=== PATIENT | female | born 1970 | race Caucasian/White ===

== ENCOUNTER 2018-11-21 20:06 | Emergency (ER) | payer OTHER ==
[2018-11-21 20:23] VITALS: BP 133/78; PULSE 90; RESP 18; TEMP 97.8
[2018-11-21] MEDS ORDERED: SULFAMETH-TMP DS STARTER PACK 2 TAB BTL PO STA (20:50)
[2018-11-21] MEDS ORDERED: DIPH,PERTUS(ACELL)TETVAC-LF 0.5 ML VIAL IM ONE (20:50)
--- NOTE | 2018-11-21 20:57 | ED ---
Upper Extremity HPI - General Chief Complaint: Extremity Injury, Upper Stated Complaint: Infection on wrist Time Seen by Provider: 11/21/18 20:24 Source: patient, RN notes reviewed, old records reviewed Mode of arrival: ambulatory Limitations: no limitations - History of Present Illness Initial Comments: Patient is a 40-year-old female presents emergency Department with complaints of wrist pain. Patient reports that she was helping her change the oil in his truck yesterday. She reports that she scratched the back of her hand on a conservative the car. Patient reports that her tetanus shot is not up-to-date. She complains of some surrounding erythema but wrist. She denies any significant pain with range of motion. She reports that has been swollen. She denies fevers. She reports normal sensation distally. - Related Data Previous Rx's Medication Instructions Recorded Sulfamethox-Tmp 800-160Mg [Bactrim 2 tab PO Q12HR #40 tab 11/21/18 DS 800-160 mg] Allergies Allergy/AdvReac Type Severity Reaction Status Date / Time clindamycin Allergy Swelling Verified 11/21/18 20:23 Tetracyclines Allergy Rash/Hives Verified 11/21/18 20:23 Review of Systems ROS Statement: Those systems with pertinent positive or pertinent negative responses have been documented in the HPI. ROS Other: All systems not noted in ROS Statement are negative. Past Medical History Past Medical History: Asthma, COPD, Thyroid Disorder Additional Past Medical History / Comment(s): IBS, History of Any Multi-Drug Resistant Organisms: None Reported Past Surgical History: Hysterectomy, Orthopedic Surgery Additional Past Surgical History / Comment(s): left ankle, bilateral knee, thyroidectomy Past Psychological History: PTSD Smoking Status: Current every day smoker Past Alcohol Use History: None Reported Past Drug Use History: None Reported General Exam - General Exam Comments Initial Comments: This is a 48-year-old female. Alert and oriented. No significant distress. Limitations: no limitations General appearance: alert, in no apparent distress Head exam: Present: atraumatic, normocephalic, normal inspection Eye exam: Present: normal appearance, PERRL, EOMI. Absent: scleral icterus, conjunctival injection, periorbital swelling ENT exam: Present: normal exam, mucous membranes moist Neck exam: Present: normal inspection. Absent: tenderness, meningismus, lymphadenopathy Respiratory exam: Present: normal lung sounds bilaterally. Absent: respiratory distress, wheezes, rales, rhonchi, stridor Cardiovascular Exam: Present: regular rate, normal rhythm, normal heart sounds. Absent: systolic murmur, diastolic murmur, rubs, gallop, clicks GI/Abdominal exam: Present: soft, normal bowel sounds. Absent: distended, tenderness, guarding, rebound, rigid Left Forearm Wrist exam: Present: full ROM. Absent: normal inspection ( has a 3 cm abrasion over the distal wrist with surrounding erythema measuring 6 cm x 5 cm.) Hand Wrist exam: Present: normal inspection, full ROM Course Vital Signs 11/21/18 20:16 Temperature 97.8 F Pulse Rate 90 Respiratory 18 Rate Blood Pressure 133/78 O2 Sat by Pulse 100 Oximetry Medical Decision Making - Medical Decision Making 48-year-old female presents emergency department today with left wrist abrasion that happened 2 days ago and surrounding cellulitis. Patient was given updated T At this time. She did cut her arm on a vehicle 2 days ago while changing oil. Patient will be started on Bactrim at this time. Discussed the importance of monitoring the area of redness if the redness continues to spread and streaking at the time I discussed the Patient she may need to return for IV antibiotics. Patient agrees to treatment plan will comply. Return parameters were discussed. Disposition Clinical Impression: Cellulitis of wrist Disposition: HOME SELF-CARE Condition: Good Instructions (If sedation given, give patient instructions): Cellulitis (ED) Additional Instructions: Patient advised to keep area clean and dry. Patient should take antibiotic as prescribed. If the area of redness spreads and worsens within the next 48 hours. Patient should return for reevaluation. Prescriptions: Sulfamethox-Tmp 800-160Mg [Bactrim DS 800-160 mg] 2 tab PO Q12HR #40 tab Is patient prescribed a controlled substance at d/c from ED?: No Referrals: Nonstaff,Physician [Primary Care Provider] - 1-2 days Lena Mensah MD [STAFF PHYSICIAN] - 1-2 days Time of Disposition: 20:55
== END 2018-11-21 21:25 | disposition home or self-care (01) ==
LOC: EC 20:06
DX: S60.812A Abrasion of left wrist, initial encounter (principal); L03.114 Cellulitis of left upper limb; F17.200 Nicotine dependence, unspecified, uncomplicated; Z88.1 Allergy status to other antibiotic agents; X58.XXXA Exposure to other specified factors, initial encounter; Z23 Encounter for immunization
CPT/HCPCS: 90471; 90715; 99283

== ENCOUNTER 2018-11-30 08:41 | Emergency (ER) | payer OTHER ==
[2018-11-30 08:45] VITALS: BP 124/79; PULSE 88; RESP 18; TEMP 98.6
[2018-11-30] MEDS ORDERED: methylPREDNISolone SOD SUCCI 125 MG/2 ML VIAL IM ONE (09:05)
[2018-11-30] MEDS ORDERED: diphenhydrAMINE 50 MG CAP PO STA (09:06)
[2018-11-30] MEDS ORDERED: FAMOTIDINE 20 MG TAB PO STA (09:06)
--- NOTE | 2018-11-30 09:12 | ED ---
Skin/Abscess/FB HPI - General Chief complaint: Skin/Abscess/Foreign Body Stated complaint: Allergic Reaction Time Seen by Provider: 11/30/18 08:48 Source: patient, RN notes reviewed, old records reviewed Mode of arrival: ambulatory Limitations: no limitations - History of Present Illness Initial comments: Patient is 48-year-old female who presents emergency department today with 1 day of diffuse rash over her body. She reports it seemed to start on her groin and legs. Patient states that she was seen and treated for left forearm cellulitis. She is placed on Bactrim approximately 8 days ago. Patient states that the cellulitis has improved on her forearm. Patient reports that the rash is somewhat pruritic. She denies any chills. Vital signs are stable. She states she's just been generally fatigued over the past day. Patient denies any other symptoms. - Related Data Previous Rx's Medication Instructions Recorded Sulfamethox-Tmp 800-160Mg [Bactrim 2 tab PO Q12HR #40 tab 11/21/18 DS 800-160 mg] Famotidine [Pepcid] 40 mg PO DAILY #20 tab 11/30/18 diphenhydrAMINE [Benadryl] 25 mg PO QID PRN #20 capsule 11/30/18 predniSONE 10 mg PO DAILY #15 tab 11/30/18 Allergies Allergy/AdvReac Type Severity Reaction Status Date / Time clindamycin Allergy Swelling Verified 11/21/18 20:23 Tetracyclines Allergy Rash/Hives Verified 11/21/18 20:23 Review of Systems ROS Statement: Those systems with pertinent positive or pertinent negative responses have been documented in the HPI. ROS Other: All systems not noted in ROS Statement are negative. Past Medical History Past Medical History: Asthma, COPD, Thyroid Disorder Additional Past Medical History / Comment(s): IBS, History of Any Multi-Drug Resistant Organisms: None Reported Past Surgical History: Hysterectomy, Orthopedic Surgery Additional Past Surgical History / Comment(s): left ankle, bilateral knee, thyroidectomy Past Psychological History: PTSD Smoking Status: Current every day smoker Past Alcohol Use History: None Reported Past Drug Use History: None Reported General Exam - General Exam Comments Initial Comments: This is a 40-year-old female. Alert and oriented 3. Patient appears in no acute distress. Limitations: no limitations General appearance: alert, in no apparent distress Head exam: Present: atraumatic, normocephalic, normal inspection Eye exam: Present: normal appearance, PERRL, EOMI. Absent: scleral icterus, conjunctival injection, periorbital swelling ENT exam: Present: normal exam, mucous membranes moist Neck exam: Present: normal inspection. Absent: tenderness, meningismus, lymphadenopathy Respiratory exam: Present: normal lung sounds bilaterally. Absent: respiratory distress, wheezes, rales, rhonchi, stridor Cardiovascular Exam: Present: regular rate, normal rhythm, normal heart sounds. Absent: systolic murmur, diastolic murmur, rubs, gallop, clicks GI/Abdominal exam: Present: soft, normal bowel sounds. Absent: distended, tenderness, guarding, rebound, rigid Extremities exam: Present: normal inspection, full ROM, normal capillary refill. Absent: tenderness, pedal edema, joint swelling, calf tenderness Back exam: Present: normal inspection Neurological exam: Present: alert, oriented X3, CN II-XII intact Psychiatric exam: Present: normal affect, normal mood Skin exam: Present: warm, dry, intact, normal color, rash (Mobility form erythematous rash over face trunk chest and legs. No blisters. Negative Nikolsky sign.) Course Vital Signs 11/30/18 08:43 Temperature 98.6 F Pulse Rate 88 Respiratory 18 Rate Blood Pressure 124/79 O2 Sat by Pulse 100 Oximetry Medical Decision Making - Medical Decision Making Patient is a 40-year-old female presents emergency department today, 9 days after being treated for left forearm cellulitis with Bactrim. Patient states the cellulitis has improved. Today she presents with a morbilliform rash. Rashes consistent with drug eruption. Vital signs are stable. Rash is no blistering, negative Nikolsky sign. Oropharynx appears normal. Patient was given IM Solu-Medrol and Pepcid and Benadryl. Patient be treated for acute ALLERGIC reaction. Discussed discontinuing the drug. Discussed strict return parameters. Patient agrees to treatment plan will comply. Disposition Clinical Impression: Drug eruption Disposition: HOME SELF-CARE Condition: Good Additional Instructions: Patient advised to follow-up with your primary care physician. Take the steroids Benadryl Pepcid as prescribed. Patient is to do cool showers. Patient needs to rest, remain hydrated. If there is any areas of blistering on the skin please return for reevaluation. Patient could have a rash her few days. Discontinue the antibiotic. Prescriptions: diphenhydrAMINE [Benadryl] 25 mg PO QID PRN #20 capsule PRN Reason: Itching Famotidine [Pepcid] 40 mg PO DAILY #20 tab predniSONE 10 mg PO DAILY #15 tab Is patient prescribed a controlled substance at d/c from ED?: No Referrals: Nonstaff,Physician [Primary Care Provider] - 1-2 days Lena Mensah MD [STAFF PHYSICIAN] - 1-2 days Time of Disposition: 09:09
== END 2018-11-30 09:27 | disposition home or self-care (01) ==
LOC: EC 08:41
DX: L27.0 Generalized skin eruption due to drugs and medicaments taken internally (principal); T37.0X5A Adverse effect of sulfonamides, initial encounter; F17.200 Nicotine dependence, unspecified, uncomplicated; Z88.1 Allergy status to other antibiotic agents
CPT/HCPCS: 96372; 99283

== ENCOUNTER → 2022-01-03 | Outpatient (CLI) | payer BC ==
--- NOTE | 2022-01-03 13:38 | US ---
EXAMINATION TYPE: US pelvic complete DATE OF EXAM: 01/03/2022 COMPARISON: NONE CLINICAL HISTORY: N83.0 OVARIAN CYST. Partial hysterectomy hx of cysts. Patient didn't want transvag inal exam. TECHNIQUE: Transabdominal (TA EXAM MEASUREMENTS: Uterus: Surgically absent Endometrial Stripe: Surgically absent Right Ovary: Obscured by bowel gas. Left Ovary: Obscured by bowel gas. 5. Bilateral Adnexa: wnl 6. Posterior cul-de-sac: wnl IMPRESSION: Postoperative changes as discussed with exam limitations as noted.
== END | disposition home or self-care (01) ==
LOC: RADUSWWP 11-26 10:53
PROVIDERS: ATTEND Internal Medicine
DX: N83.209 Unspecified ovarian cyst, unspecified side (principal); Z90.711 Acquired absence of uterus with remaining cervical stump
CPT/HCPCS: 76856

== ENCOUNTER → 2022-01-14 | Outpatient (CLI) | payer BC ==
--- NOTE | 2022-01-14 14:15 | US ---
EXAMINATION TYPE: US venous doppler duplex LE LT DATE OF EXAM: 01/14/2022 2:04 PM COMPARISON: NONE CLINICAL HISTORY: R22.42 LOCALIZED SWELLING, MASS AND LUMP, LEFT LOW. No hx of DVT. Patient does not take blood thinners. Pain and swelling x 1 month. SIDE PERFORMED: Left TECHNIQUE: The lower extremity deep venous system is examined utilizing real time linear array sonog josiane with graded compression, doppler sonography and color-flow sonography. VESSELS IMAGED: Common Femoral Vein Deep Femoral Vein Greater Saphenous Vein * Femoral Vein Popliteal Vein Small Saphenous Vein * Proximal Calf Veins (* superficial vessels) Left Leg: No evidence of DVT in veins imaged at this time. IMPRESSION: No evidence of DVT at this time.
== END | disposition home or self-care (01) ==
LOC: RADUSWWP 13:45
PROVIDERS: ATTEND Internal Medicine
DX: R22.42 Localized swelling, mass and lump, left lower limb (principal); M79.662 Pain in left lower leg

== ENCOUNTER → 2024-02-23 | Outpatient (CLI) | payer BC ==
--- NOTE | 2024-02-23 11:06 | CTL ---
EXAMINATION TYPE: CT Low Dose Lung DATE OF EXAM ORDERED: 02/23/2024 History: Lung cancer screening CT DLP: 88.[address] CTDI: 2.2 mGy Automated exposure control for dose reduction was used. Comparison: None TECHNIQUE: Low dose computed tomography scan was performed through the chest at 1 mm thick sections a nd reconstructed images in multiple planes at 1 mm and [address] DIAGNOSTIC QUALITY: Satisfactory Findings: There are moderate emphysematous changes. There is mild pleural-parenchymal scarring and bronchiectasis in the right middle lobe. There is 11.3 mm somewhat ill-defined nodule in the right middle lobe. There is a sub-5 mm nodule in the right upper lobe laterally. There is a sub-5 mm nodule in the left lower lobe. The great vessels chest are normal and is no mediastinal, hilar or axillary adenopathy. There are anjelica cified right hilar lymph nodes. There is no pleural effusion or pneumothorax. Limited scanning through the upper abdomen reveals a well-circumscribed 2.5 cm hypodense nodule in th e left adrenal gland most likely an adrenal adenoma. No focal osseous lesions are seen. IMPRESSION: 1. Lung RADS category 4A for the 11.3 mm nodule in the right upper lobe. PET scan is recommended for further evaluation. 2. Moderate emphysematous changes. 3. Left adrenal mass as described above, most likely an adenoma. 4. No acute cardiopulmonary disease.
== END | disposition home or self-care (01) ==
LOC: RADCTMAIN 09:19
PROVIDERS: ATTEND Internal Medicine Critical Care Medicine
DX: Z12.2 Encounter for screening for malignant neoplasm of respiratory organs (principal); R91.1 Solitary pulmonary nodule; E27.9 Disorder of adrenal gland, unspecified; F17.210 Nicotine dependence, cigarettes, uncomplicated
CPT/HCPCS: 71271

== ENCOUNTER → 2024-03-14 | Outpatient (CLI) | payer BC ==
--- NOTE | 2024-03-15 14:08 | PE ---
EXAMINATION TYPE: PET CT fusion skull to thigh DATE OF EXAM: 03/14/2024 CLINICAL INDICATION:Female, 53 years old with history of R91.8 lung nodule; TECHNIQUE: Following the intravenous administration of 8.09 mCi of F-18 FDG, whole body images are performed from the skull base to the midthigh. Images are reviewed on the computer in the coronal, a xial, and sagittal planes. Reconstructed rotating images are created on independent workstation and reviewed on the computer. A non-contrast CT is performed in conjunction with the PET scan. Glucose level 96 mg/dL CT DLP: 446.07 mGycm, Automated exposure control for dose reduction was used. COMPARISON: CT low dose lung cancer screening 02/23/2024, PET/CT None, MRI: None FINDINGS: Mediastinal SUV mean is 3.46. Hepatic parenchyma SUV mean is 3.78. SKULL BASE AND NECK: No suspicious radiotracer activity. CHEST, MEDIASTINUM, AND HILAR REGION: Inferior right middle lobe 9 mm pulmonary nodule redemonstrated . Max SUV 0.93 which is below background. Lateral right upper lobe 3 mm pulmonary nodule redemonstrat ed. Maximum SUV of 1.36 which is below background. Moderate emphysematous changes. Linear atelectasis within the lingula and right middle lobe. Calcified right hilar lymph nodes. No other suspicious rad iotracer activity. ABDOMEN AND PELVIS: Left adrenal gland mass measuring up to 2.7 cm with a Hounsfield unit of -15. Max SUV 2.68 which is below background. Consistent with a benign lipid rich adenoma. Posthysterectomy. N o suspicious radiotracer activity. MUSCULOSKELETAL STRUCTURES: No suspicious radiotracer activity. OTHER CT: Ascending thoracic aortic aneurysm measuring up to 4.1 cm. IMPRESSION: Redemonstration of right middle lobe 9 mm pulmonary nodule with a max SUV below background. May repre sent benign nodule however non-FDG avid pulmonary neoplasm is not excluded. Follow-up CT chest in 3-6 months is recommended. Additional tiny right upper lobe pulmonary nodule is too small to accurately characterize. Attention on follow-up. No other suspicious radiotracer activity identified.
== END | disposition home or self-care (01) ==
LOC: RADPETMAIN 11:13
PROVIDERS: ATTEND Internal Medicine Critical Care Medicine
DX: R91.8 Other nonspecific abnormal finding of lung field (principal)
CPT/HCPCS: 78815; A9552